=== PATIENT | male | born 1965 | race Caucasian/White ===

== ENCOUNTER → 2020-09-20 | Outpatient (CLI) | payer OTHER | LOC: M.CT 13:14 | PROVIDERS: ATTEND Internal Medicine Critical Care Medicine | DX: Z12.2 Encounter for screening for malignant neoplasm of respiratory organs (principal); Z87.891 Personal history of nicotine dependence ==

== ENCOUNTER → 2020-11-03 | Outpatient (CLI) | payer OTHER ==
--- NOTE | 2020-11-14 22:16 | SLEEP ---
[place] [address] SLEEP STUDY REPORT Name: ANDIEQUEENIEDURAN Pereira Room: [facility]#: [id number] Admission: 11/03/20 Attend Phys: Jose Alcazar MD Discharge: Date of : 61 Report #: [id number] THIS REPORT FOR: cc: Norbert García MD, Dean L. MD Pervez,Jose HAMMONDS ~ DOC #: [id number] Jose Alcazar MD DATE OF STUDY: 11/03/2020 HOME SLEEP STUDY INDICATION FOR SLEEP STUDY: Witnessed apneas while asleep with hypersomnia and hypertension. INTERPRETATION: Total duration of the study is 504 minutes. During this time duration, we recorded multiple sleep related respiratory events. These included 103 obstructive apneas in addition to 30 central apneas, 1 mixed apnea and 27 hypopneas. Overall apnea-hypopnea index is 19.2. Body position data indicates the patient was observed in the supine position for 253 minutes, the rest of the time the patient was on the right side. There is no obvious positional variation. There are multiple desaturations recorded. O2 saturation is less than 80% for 84 minutes. It is less than 88% for 29 minutes. The lowest recorded O2 saturation is 81%. Mean heart rate was 57. IMPRESSION: 1. Obstructive sleep apnea with an apnea-hypopnea index of 19.2. Most events are of obstructive origin. There are a significant number of central apneas recorded as well as above. 2. There is nocturnal hypoxemia as described above. 3. There is no significant positional variation observed. RECOMMENDATIONS: Considering significant nocturnal hypoxemia as well as the fact that there is a significant number of central apneas recorded. I recommend proceeding to in-lab sleep study for positive airway pressure titration rather than the use of a CPAP auto-titrated device. I recommend weight loss. I recommend avoiding driving and other activities requiring vigilance if drowsy. This entire sleep study was reviewed by board certified sleep physician. Jose Alcazar MD [place] [address] SLEEP STUDY REPORT Name: DURAN TEJEDA Room: [facility]#: [id number] Admission: 11/03/20 Attend Phys: Jose Alcazar MD Discharge: Date of : 61 Report #: [id number] <ELECTRONICALLY SIGNED> By: Jose Alcazar MD 11/14/20 2216 [id number] Alcazar MD /nt
== END ==
LOC: M.PUL 12:30
PROVIDERS: ATTEND Internal Medicine Critical Care Medicine
DX: G47.33 Obstructive sleep apnea (adult) (pediatric) (principal); G47.10 Hypersomnia, unspecified

== ENCOUNTER → 2021-01-28 | Outpatient (CLI) | payer OTHER ==
--- NOTE | 2021-03-03 15:38 | SLEEP ---
[address] [address] SLEEP STUDY REPORT Name: ANDIEQUEENIEDURAN Pereira Room: [facility]#: [id number] Admission: 01/28/21 Attend Phys: Jose Alcazar MD Discharge: Date of : 61 Report #: [id number] THIS REPORT FOR: cc: Norbert García MD, Dean L. MD Pervez,Jose HAMMONDS ~ DATE OF STUDY: 01/28/2021 SLEEP STUDY INDICATION FOR SLEEP STUDY: Obstructive sleep apnea diagnosed during the home sleep study, sleep study now being performed for positive airway pressure titration. INTERPRETATION: Total duration of the sleep study is 374 minutes out of which he was asleep for 361 minutes with an overall sleep efficiency of 70%. Sleep onset initially occurred 24 minutes of lying down in bed. REM onset was 102 minutes after sleep onset. N1 sleep duration is 6%, N2 duration is 70%, N3 duration is 3% and REM duration is 21%. Mean heart rate was 52. There were no significant periodic limb movements recorded. Arousal index is normal at 8.8. This is a CPAP titration. Review of the CPAP titration indicates the patient was titrated beginning with a CPAP pressure of 5 cm of water, gradually increasing it to 9 cm of water. With the administration of a CPAP of 9 cm of water, there is adequate control of the patient's obstructive sleep apnea noted. O2 saturation is also adequately maintained with this therapy and REM supine sleep is observed on the final CPAP pressure. IMPRESSION: Obstructive sleep apnea, adequately controlled with CPAP of 9 cm of water, REM supine sleep was observed on the final CPAP pressure. RECOMMENDATIONS: 1. Recommend a CPAP of 9 cm of water with heated humidity and mask per patient preference while asleep. During the sleep study, a [employer]pir[employer].e[employer] DreamWear under nose device size medium was used. 2. Recommend weight loss. 3. Recommend avoiding driving and other activities requiring vigilance if drowsy. This entire sleep study was reviewed by board certified sleep physician. <ELECTRONICALLY SIGNED> By: Jose Alcazar MD 03/03/21 1538 [id number] Alcazar MD /nt
== END ==
LOC: M.SLEEPLAB 20:49
PROVIDERS: ATTEND Internal Medicine Critical Care Medicine
DX: G47.33 Obstructive sleep apnea (adult) (pediatric) (principal)

== ENCOUNTER → 2021-01-30 | Outpatient (CLI) | payer OTHER ==
--- NOTE | 2021-01-30 10:58 | 2DMMODE ---
[place] [address] 2 D/M-MODE ECHOCARDIOGRAM Name: DURAN TEJEDA Room: [facility]#: [id number] Admission: 01/30/21 Attend Phys: Jose Alcazar MD Discharge: Date of : 61 Date of Service: 01/30/21 1057 Report #: [id number] THIS REPORT FOR: cc: Norbert García MD, Dean L. MD Blick,Santiago Monsalve MD [facility] ~ APPROVED REPORT Study performed: 01/30/2021 09:03:25 EXAM: Comprehensive 2D, Doppler, and color-flow Echocardiogram BSA: 2.21 HR: 53 bpm BP: 128/80 mmHg Other Information Study Quality: Good Indications Murmur 2D Dimensions IVSd: 10.40 (7-11mm) LVOT Diam: 22.94 (18-24mm) LVDd: 50.60 mm PWd: 10.82 (7-11mm) Ascending Ao: 39.61 (22-36mm) LVDs: 35.12 (25-40mm) Aortic Root: 30.49 mm Volumes Left Atrial Volume (Systole) LA ESV Index: 15.60 mL/m2 Aortic Valve AoV Peak Jose Luis.: 1.63 m/s AO Peak Gr.: 10.57 mmHg LVOT Max P.77 mmHg AO Mean Gr.: 6.06 mmHg LVOT Mean P.71 mmHg LVOT Max V: 1.39 m/s AO V2 VTI: 32.02 cm LVOT Mean V: 0.89 m/s BERTHA (VTI): 3.95 cm2 LVOT V1 VTI: 30.62 cm Mitral Valve E/A Ratio: 1.42 MV Decel. Time: 209.27 [place] [address] 2 D/M-MODE ECHOCARDIOGRAM Name: DURAN TEJEDA Room: [facility]#: [id number] Admission: 01/30/21 Attend Phys: Jose Alcazar MD Discharge: Date of : 61 Date of Service: 01/30/21 1057 Report #: [id number] MV E Max Jose Luis.: 0.83 m/s MV PHT: 60.69 ms MVA (PHT): 3.63 cm2 TDI E/Lateral E': 6.38 E/Medial E': 5.53 Medial E' Jose Luis.: 0.15 m/s Lateral E' Jose Luis.: 0.13 m/s Pulmonary Valve PV Peak Jose Luis.: 0.90 m/s PV Peak Gr.: 3.25 mmHg Tricuspid Valve RAP Estimate: 5.00 mmHg TR Peak Gr.: 18.30 mmHg RVSP: 23.30 mmHg PA Pressure: 23.30 mmHg Left Ventricle The left ventricle is normal size. There is normal LV segmental wall motion. There is normal left ventricular wall thickness. Left ventricular systolic function is normal. The left ventricular ejection fraction is within the normal range. LVEF is 60-65%. Right Ventricle The right ventricle is normal size. The right ventricular systolic function is normal. Atria The left atrium size is normal. The right atrium size is normal. Aortic Valve The aortic valve is normal in structure. No aortic regurgitation is present. There is no aortic valvular stenosis. Mitral Valve The mitral valve is normal in structure. Trace mitral regurgitation. No evidence of mitral valve stenosis. Tricuspid Valve The tricuspid valve is normal in structure. Trace tricuspid regurgitation. Pulmonic Valve The pulmonary valve is normal in structure. There is no pulmonic [place] [address] 2 D/M-MODE ECHOCARDIOGRAM Name: DURAN TEJEDA Room: [facility]#: [id number] Admission: 01/30/21 Attend Phys: Jose Alcazar MD Discharge: Date of : 61 Date of Service: 01/30/21 1057 Report #: [id number] Great Vessels The aortic root is normal in size. The ascending aorta is mildly dilated. IVC is normal in size and collapses >50% with inspiration. Pericardium There is no pericardial effusion. <Conclusion> LVEF is 60-65%. Trace mitral regurgitation. The ascending aorta is mildly dilated. <ELECTRONICALLY SIGNED> By: Santiago Gonzalez MD, [facility] 01/30/21 1057 56 56 Santiago Gonzalez MD, FAC /INF
== END ==
LOC: M.CRD 08:51
PROVIDERS: ATTEND Internal Medicine Critical Care Medicine
DX: R01.1 Cardiac murmur, unspecified (principal); J44.9 Chronic obstructive pulmonary disease, unspecified